=== PATIENT | male | born 1955 | race Hispanic/Latino ===

== ENCOUNTER 2017-08-30 14:12 | Outpatient (CLI) | payer OTHER ==
--- NOTE | 2017-08-30 16:13 | XRay Report ---
XRAY BILATERAL KNEE THREE VIEWS EACH: 08/30/17 14:12:00 CLINICAL: Bilateral knee pain. FINDINGS: Right: The medial joint space is normal. Mild widening of the lateral joint space with valgus deformity. Small patellofemoral osteophytes. No fracture or dislocation. No joint effusion.Normal soft tissues. Left: Medial meniscal chondrocalcinosis with minimal narrowing of the medial joint space. Lateral joint space is normal. Tiny patellofemoral osteophytes. No fracture or dislocation. No joint effusion.Normal soft tissues. IMPRESSION: Mild bilateral osteoarthritis.Chondrocalcinosis of the medial left meniscus.
== END 2017-08-30 14:13 | disposition home or self-care (01) ==
LOC: SPVIMAG 14:12
PROVIDERS: ATTEND Orthopaedic Surgery
DX: M17.0 Bilateral primary osteoarthritis of knee (principal); M11.262 Other chondrocalcinosis, left knee